=== PATIENT | female | born 2005 | race Caucasian/White ===

== ENCOUNTER → 2023-08-31 | Outpatient (CLI) | payer BC ==
--- NOTE | 2023-09-01 11:05 | US ---
EXAMINATION TYPE: Transabdominal DATE OF EXAM: 08/31/2023 3:54 PM COMPARISON: NONE CLINICAL INDICATION: Female, 17 years old with history of Z34.90 ENCNTR FOR SUPRVSN OF NORMAL PREGNAN CY, UNS; EXAM PERFORMED: Transabdominal (TA) EXAM MEASUREMENTS: GESTATIONAL AGE / DATING Physician Established: Not yet established Dates by LMP: (13 weeks/3 days) EDC: 03/04/2024 Dates by First Scan: No previous this is first scan Dates by Current Scan for: (9 weeks/1 days) EDC: 04/03/2024 MATERNAL ANATOMY Uterus: 10.0 x 7.3 x 8.8 cm Right Ovary: 2.6 x 2.0 x 2.1 cm Left Ovary: 3.1 x 1.5 x 2.8 cm Post CDS / Adnexa: WNL Presence of free fluid: No Presence of corpus luteal cyst: No Presence of subchorionic bleed: No GESTATION / SURVEY CRL: 2.4 cm (9 weeks/1 days) MSD: Yolk Sac (normal less than 6mm): 0.34 cm Heart Rate: 163 bpm Rhythm: Normal IUP: Viable IUP Nuchal Translucency 10-14wks (normal less than 3mm): Not able to assess Age Appropriate Anatomy Cord Insertion: Too early to visualize Limbs: Visualized Calvarium: Visualized Date of LMP: 05/29/2023 Beta HcG (if available): Not available at this time IMPRESSION: 1. Single viable intrauterine with an estimated age of 9 weeks 1 day based on crown-rump le ngth. 2. No abnormality of the uterus, adnexa or placenta. 3. Exams not performed for evaluation of anatomy. Presence of any anomalies not evaluated .
== END | disposition home or self-care (01) ==
LOC: RADUSWWP 15:28
PROVIDERS: ATTEND Obstetrics & Gynecology
DX: Z34.91 Encounter for supervision of normal pregnancy, unspecified, first trimester (principal); Z3A.10 10 weeks gestation of pregnancy
CPT/HCPCS: 76801

== ENCOUNTER → 2023-11-16 | Outpatient (CLI) | payer BC ==
--- NOTE | 2023-11-16 16:19 | US ---
EXAMINATION TYPE: US OB anatomy transabd DATE OF EXAM: 11/16/2023 COMPARISON: 08/31/2023 CLINICAL INDICATION: Female, 18 years old with history of Z34.90 ENCNTR FOR SUPRVSN OF NORMAL PREGNAN CY, UNS; Patient denies any signs or symptoms at this time TECHNIQUE: Transabdominal (TA) EXAM MEASUREMENTS: GESTATIONAL AGE / DATING Physician Established: (20 weeks/1 days) 04/03/2024 EDC: Dates by LMP: ( weeks/ days) EDC: Dates by First Scan: ( weeks/ days) EDC: Dates by Current Scan for: (20 weeks/2 days) 04/02/2024 EDC: SURVEY IUP: Single PLACENTA: Posterior PREVIA: No previa MARC: 11.4 cm Normal CERVICAL LENGTH (transabdominal: norm > 3.0cm): 3.0 cm CERVICAL LENGTH (transvaginal: norm> 2.5cm): NA cm (Supplemental transvaginal imaging performed to verify cervical length.) BIOMETRY PRESENTATION: Vertex LIE: Longitudinal BPD: 4.89 cm 20 weeks / 6 days HC: 17.74 cm 20 weeks / 2 days AC: 15.24 cm 20 weeks / 3 days FL: 3.36 cm 20 weeks / 4 days ESTIMATED WEIGHT IN GRAMS: 356.4 grams ESTIMATED WEIGHT IN LBS/OZ: 0 lbs. 13 oz. WEIGHT PERCENTAGE BASED ON ESTABLISHED DATE: 64.7 % HC/AC: 1.16 Normal FL/AC: 22.07 Normal HEART RATE: WNL bpm RHYTHM: Normal ANATOMY SEEN (within normal limits): * Lateral Vent (< 1 cm) 0.75 cm * Cisterna Magna (< 1.1 cm) 0.23 cm * Nuchal Fold (< 0.6 cm) 0.4 cm * Cerebellum (varies with age) 2.06 cm Choroid Plexus (bilateral) Midline Falx Cavus Septi Pellucidi Four Chamber Heart Outflow tracts: LVOT/RVOT Stomach Situs Nose / Lips Diaphragm Kidneys (bilateral) Bladder Cord Insert Longitudinal Spine Transverse Spine Arms (bilateral) Legs (bilateral) ANATOMY SEEN (does not appear within normal limits): ? 2 vessel cord; Unable to get flow on both side s of bladder, transverse view of umbilical cord appears to have two vessels ANATOMY NOT SEEN: All anatomy seen MATERNAL WALL MEASUREMENT: N/A cm from skin to anterior uterine wall (if exam limited due to body valvered bitus). IMPRESSION: Single live intrauterine gestation with estimated gestational age of 20 weeks 2 days with estimated d ue date of 04/02/2024. There appears to be two-vessel umbilical cord identified. Remaining anatomy ap pears unremarkable.
== END | disposition home or self-care (01) ==
LOC: RADUSWWP 13:08
PROVIDERS: ATTEND Obstetrics & Gynecology
DX: Z34.90 Encounter for supervision of normal pregnancy, unspecified, unspecified trimester (principal); Z3A.20 20 weeks gestation of pregnancy; Z36.82 Encounter for antenatal screening for nuchal translucency
CPT/HCPCS: 76811

== ENCOUNTER 2024-03-15 22:17 | Outpatient (CLI) | payer BC ==
[2024-03-15 23:48] VITALS: BP 123/74; PULSE 103; RESP 16; TEMP 97.6
--- NOTE | 2024-03-16 12:17 | P.MSEPDOC ---
Presenting Problems - Arrival Data Date of Arrival on Unit: 03/15/24 Time of Arrival on Unit: 22:17 Mode of Transport: Ambulatory - Complaint OB-Reason for Admission/Chief Complaint: Possible Onset of Labor Comment: Pt of Dr. Keller 37 weeks and 2 days presents with intermittent abd cramping since 2100 tonight rating 5/10. Medical History - Information : 1 Para: 0 Term: 0 : 0 Abortions: Spontaneous or Elective: 0 Number of Living Children: 0 - Gestational Age Gestational Age by JHOANA (wks/days): 37 Weeks and 2 Days Review of Systems - Review of Systems Constitutional: No problems Breast: No problems ENT: No problems Cardiovascular: No problems Respiratory: No problems Gastrointestinal: No problems Genitourinary: No problems Musculoskeletal: No problems Neurological: No problems Skin: No problems Vital Signs - Temperature Temperature: 97.6 F Temperature Source: Temporal Artery Scan - Pulse Pulse Oximetery Pulse Rate: 103 Pulse Assessment Method: Pulse Oximetry - Respirations Respiratory Rate: 16 Oxygen Delivery Method: Room Air O2 Sat by Pulse Oximetry: 97 - Blood Pressure Right Arm Blood Pressure: 123/74 Blood Pressure Mean: 90 Blood Pressure Source: Automatic Cuff Medical Screen Scoring - Cervical Exam Dilation (cm): 1 Effacement (%): 70 Station: -2 Membranes: Intact - Uterine Contractions Frequency From (mins): 2 Frequency To (mins): 4 Duration From (seconds): 40 Duration To (seconds): 60 Intensity: Mild Resting: Soft to palpation - Assessment - Baby A Baseline FHR: 130 Heart Rate - NICHD Category: Category I (Normal) NST: Reactive Physician Notification - Physician Notified Physician Notified Date: 03/15/24 Physician Notified Time: 23:28 Physician: Shona Stewart New Order Received: Yes - Notification Comment Comment: Called Dr. Stewart. Pt of Dr. Krishna Beard 37 weeks and 2 days presents with intermittent abd cramping since 2100 tonight rating 5/10. SVE 1/70/-2 and repeat exam the same after 1 hour. Pt also states she was 1cm in office at 35 weeks NST reactive at cat 1, cx 2-4 min apart but pt able to talk through them and not uncomfortable. Order to d/c pt home Maternal Triage Index - Maternal Triage Index Presenting for scheduled procedure w/no complaint: No - Stat/Priority 1 Stat Priority 1: No - Urgent/Priority 2 Urgent Priority 2: No - Prompt/Priority 3 Prompt Priority 3: Yes Criteria Met for Priority 3: Pt of Dr. Keller 37 weeks and 2 days presents with intermittent abd cramping since 2099 tonight rating 5/10. - Non-Urgent/Priority 4 Non-Urgent Priority 4: No Disposition - Disposition OB Disposition: Discharge to home Discharge Date: 03/15/24 Discharge Time: 23:36 I agree with the RN Medical Screening Exam: Yes Case reviewed; plan agreed upon as documented in EMR&OBIX.: Yes Diagnosis: FALSE LABOR AT OR AFTER 37 COMPLETED WEEKS OF GESTATION
== END 2024-03-15 23:36 | disposition home or self-care (01) ==
LOC: FBPOP 22:17
PROVIDERS: ATTEND Obstetrics & Gynecology Obstetrics
DX: O47.1 False labor at or after 37 completed weeks of gestation (principal); Z3A.37 37 weeks gestation of pregnancy
CPT/HCPCS: 59025; 99213